=== PATIENT | male | born 1950 | race Caucasian/White ===

== ENCOUNTER 2024-07-22 19:49 | Emergency (ER) | payer OTHER, MEDICAID ==
[~2024-07-22] VITALS: Ht 167.6 cm; Wt 80.2 kg
[2024-07-22 20:02] VITALS: TEMP 97.9
[2024-07-22 20:36] VITALS: BP 158/94; PULSE 90; RESP 16; O2SAT 95
== END 2024-07-22 20:40 ==
LOC: ER 19:50
DX: F10.129 Alcohol abuse with intoxication, unspecified (principal); Y90.9 Presence of alcohol in blood, level not specified; V87.8XXA Person injured in other specified noncollision transport accidents involving motor vehicle (traffic), initial encounter; Y93.89 Activity, other specified; Y92.89 Other specified places as the place of occurrence of the external cause; Y99.8 Other external cause status
CPT/HCPCS: 99283